=== PATIENT | female | born 1950 | race Asian ===

== ENCOUNTER 2018-08-14 22:22 | Emergency (ER) | payer OTHER ==
[~2018-08-14] VITALS: Ht 160 cm; Wt 70.8 kg
[2018-08-14 22:33] VITALS: Ht 160 cm; Wt 70.8 kg
[2018-08-14 23:36] LABS: BASOPHIL % 0.6 % (0-2); PLATELET COUNT 245 x10^3mcL (130-400); RED CELL DISTRIBUTION WIDTH 13.8 % (11.5-14.5)
[2018-08-14 23:56] LABS: CALCIUM 9.1 mg/dL (8.5-10.1); CARBON DIOXIDE 29.1 mmol/L (21-32); POTASSIUM SERUM 3.2 mmol/L (3.5-5.1)
[2018-08-15 00:01] LABS: ALBUMIN 3.9 g/dL (3.4-5.0); BILIRUBIN TOTAL 0.6 mg/dL (0.20-1.00)
[2018-08-15 01:53] VITALS: BP 144/76
== END 2018-08-15 01:53 | disposition home or self-care (01) ==
LOC: ED 22:22
PROVIDERS: Emergency Medicine
DX: I10 Essential (primary) hypertension (principal); F41.9 Anxiety disorder, unspecified; E11.9 Type 2 diabetes mellitus without complications
CPT/HCPCS: 36415; Q0092

== ENCOUNTER 2018-08-15 16:51 | Inpatient (IN) | payer OTHER ==
[~2018-08-15] VITALS: Ht 160 cm; Wt 74.8 kg
[2018-08-15 17:03] VITALS: Ht 160 cm; Wt 74.8 kg
[2018-08-15 18:03] LABS: BASOPHIL % 0.7 % (0-2); PLATELET COUNT 259 x10^3mcL (130-400); RED CELL DISTRIBUTION WIDTH 13.4 % (11.5-14.5)
[2018-08-15 18:17] LABS: CALCIUM 8.7 mg/dL (8.5-10.1); CARBON DIOXIDE 27.4 mmol/L (21-32); CREATININE SERUM 1.2 mg/dL (0.6-1.0); POTASSIUM SERUM 3.4 mmol/L (3.5-5.1)
[2018-08-15 18:22] LABS: ALBUMIN 3.6 g/dL (3.4-5.0); BILIRUBIN TOTAL 0.62 mg/dL (0.20-1.00); TOTAL PROTEIN, SERUM 7.7 g/dL (6.4-8.2)
[2018-08-15 20:45] VITALS: BP 182/98
[2018-08-15 21:03] LABS: T3 TOTAL 0.44 ng/mL
[2018-08-15 21:06] LABS: CHOLESTEROL/HDL RATIO 3.2; MAGNESIUM 2.3 mg/dL (1.8-2.4); PHOSPHOROUS 3.9 mg/dL (2.5-4.9)
[2018-08-15 21:11] VITALS: BP 194/94
[2018-08-15 21:27] LABS: FREE T4 1.42 ng/dL (0.76-1.46); FREE THYROXINE INDEX 3.4 ug/dL (1.4-4.5); T4(THYROXINE) 8.5 ug/dL (4.7-13.3)
[2018-08-15 21:48] VITALS: BP 176/94
[2018-08-16 01:16] VITALS: BP 157/90
[2018-08-16 05:35] VITALS: BP 158/93
[2018-08-16 06:24] LABS: CALCIUM 8.8 mg/dL (8.5-10.1); CARBON DIOXIDE 31.2 mmol/L (21-32); CREATININE SERUM 1.1 mg/dL (0.6-1.0); MAGNESIUM 2.2 mg/dL (1.8-2.4); PHOSPHOROUS 3.7 mg/dL (2.5-4.9); POTASSIUM SERUM 3.5 mmol/L (3.5-5.1)
[2018-08-16 06:49] LABS: BASOPHIL % 0.6 % (0-2); PLATELET COUNT 265 x10^3mcL (130-400); RED CELL DISTRIBUTION WIDTH 13.7 % (11.5-14.5)
[2018-08-16 09:11] VITALS: BP 149/80
[2018-08-16 12:44] VITALS: BP 138/72
[2018-08-16 13:52] VITALS: BP 138/72
== END 2018-08-16 16:52 | disposition home or self-care (01) | DRG 205 ==
LOC: ED 16:51 → DU 20:08
PROVIDERS: Emergency Medicine; Internal Medicine
DX: M94.0 Chondrocostal junction syndrome [Tietze] (principal); N17.0 Acute kidney failure with tubular necrosis; D68.69 Other thrombophilia; E11.65 Type 2 diabetes mellitus with hyperglycemia; I48.91 Unspecified atrial fibrillation; E87.6 Hypokalemia; I10 Essential (primary) hypertension; Z68.28 Body mass index [BMI] 28.0-28.9, adult
CPT/HCPCS: 36415; 82962; 83880; 84439; Q0092; Q9967